=== PATIENT | male | born 1980 | race Caucasian/White ===

== ENCOUNTER 2020-06-09 04:11 | Emergency (ER) | payer BC ==
[~2020-06-09] VITALS: Ht 180.3 cm; Wt 86.4 kg
[2020-06-09 04:16] VITALS: BP 145/111
[2020-06-09] MEDS ORDERED: HYDR-3965 PO (04:44)
== END 2020-06-09 05:04 | disposition home or self-care (01) ==
LOC: ER 04:12
DX: S92.001A Unspecified fracture of right calcaneus, initial encounter for closed fracture (principal); F17.200 Nicotine dependence, unspecified, uncomplicated; W18.42XA Slipping, tripping and stumbling without falling due to stepping into hole or opening, initial encounter; Y93.89 Activity, other specified; Y92.89 Other specified places as the place of occurrence of the external cause; Y99.8 Other external cause status
CPT/HCPCS: 29125; 73630; 99284

== ENCOUNTER 2020-06-22 14:51 | Outpatient (CLI) | payer BC ==
[~2020-06-22 14:51] MED LIST: HYDR-3965 PO
== END 2020-06-22 23:59 | disposition home or self-care (01) ==
LOC: 64 CT 14:51
PROVIDERS: ATTEND Registered Nurse
DX: S92.001A Unspecified fracture of right calcaneus, initial encounter for closed fracture (principal); M25.474 Effusion, right foot; M25.471 Effusion, right ankle; M79.671 Pain in right foot; Z68.26 Body mass index [BMI] 26.0-26.9, adult; X58.XXXA Exposure to other specified factors, initial encounter; Y93.89 Activity, other specified; Y92.89 Other specified places as the place of occurrence of the external cause; Y99.8 Other external cause status
CPT/HCPCS: 73700

== ENCOUNTER 2022-10-03 13:57 | Emergency (ER) | payer SELFPAY ==
[~2022-10-03] VITALS: Ht 180.3 cm; Wt 90.9 kg
[2022-10-03 14:28] VITALS: BP 147/86
[2022-10-03] MEDS ORDERED: CEPH-585 PO (15:05)
== END 2022-10-03 15:13 | disposition home or self-care (01) ==
LOC: ER 13:57
DX: L03.116 Cellulitis of left lower limb (principal); Z79.899 Other long term (current) drug therapy
CPT/HCPCS: 99283